=== PATIENT | male | born 1935 | race Caucasian/White ===

== ENCOUNTER 2018-12-22 08:26 | Inpatient (IN) | payer OTHER ==
[2018-12-22] VITALS (26 sets, daily range): BP systolic 150–218; BP diastolic 58–112; PULSE 59–95; RESP 10–26; Ht 168.9 cm; Wt 75.0 kg
[~2018-12-22] VITALS: Ht 168.9 cm; Wt 75.0 kg
[~2018-12-22 08:26] MED LIST: DEXAMETHASONE 4 MG/ML 5 ML INJ ONE; GLYCOPYRROLATE 0.4 MG INJ ONE; NEOSTIGMINE 10 MG INJ ONE; ONDANSETRON 4 MG INJ ONE; ROCURONIUM 50 MG INJ ONE
[2018-12-22] MEDS ORDERED: SITA100T11 PO (12:08)
[2018-12-22] MEDS ORDERED: ERGO2000 PO (12:10)
[2018-12-22] MEDS ORDERED: ASPI81TA52 PO (12:10)
[2018-12-22] MEDS ORDERED: CILO50TA PO (12:11)
[2018-12-22] MEDS ORDERED: METF100010 PO (12:11)
[2018-12-22] MEDS ORDERED: ATOR40TA68 PO (12:12)
[2018-12-22] MEDS ORDERED: TAMS0.4C2 PO (12:17)
[2018-12-22] MEDS ORDERED: LOSA25TA12 PO (12:18)
[2018-12-22] MEDS ORDERED: TRAM50TA PO (12:19)
[2018-12-22] MEDS ORDERED: BUPIVACAINE 0.5% (SDV) 30 ML INJ ONE (13:05)
[2018-12-22] MEDS ORDERED: GELATIN SIZE 100 SPONGE ONE (13:05)
[2018-12-22] MEDS ORDERED: THROMBIN (BOVINE) 5,000 UNIT VIAL TP ONE (13:05)
--- NOTE | 2018-12-22 13:05 | PREAC ---
Date/Time of Note Date/Time of Note DATE: 12/22/18 TIME: 13:03 Anesthesia Eval and Record Evaluation Time Pre-Procedure Interview DATE: 12/22/18 TIME: 13:03 Age 83 Sex male NPO: 8 hrs Preoperative diagnosis right common femoral artery occlusion Planned procedure right common femoral artery endarterectomy Past Medical History Past Medical History: Includes Cardio: HTN, Dyslipidemia, CAD, Other (aortic aneurysm) Endo: Diabetes Pulm: Smoking Hx Musculoskeletal: Other (chronic back pain) Heme: Anemia Surgery & Anesthesia Issues No known issue Meds Anticoagulation: No Beta Patsy within 24 hr: No Reason Beta Patsy not given: Pt. not on B-Patsy Reported Medications Tramadol Hcl* (Ultram*) 50 Mg Tablet, 50 MG PO TID PRN for PAIN, TAB 12/22/18 Losartan Potassium* (Losartan Potassium*) 25 Mg Tablet, 25 MG PO DAILY, TAB 12/22/18 Tamsulosin Hcl* (Tamsulosin Hcl*) 0.4 Mg Cap.er.24h, 0.4 MG PO HS, CAP 12/22/18 Atorvastatin* (Atorvastatin*) 40 Mg Tablet, 40 MG PO QHS, #30 TAB 12/22/18 Metformin Hcl* (Metformin Hcl*) 1,000 Mg Tablet, 1000 MG PO WITH BREAKFAST DINNE, #60 TAB 12/22/18 Cilostazol* (Cilostazol*) 50 Mg Tablet, 50 MG PO BID, TAB 12/22/18 Aspirin (Low Dose Aspirin) 81 Mg Tablet.dr, 81 MG PO DAILY, #30 TAB 12/22/18 Ergocalciferol (Vitamin D2) (VITAMIN D2) 2,000 Unit Tablet, 2000 UNIT PO DAILY, TAB 12/22/18 Sitagliptin* (Januvia*) 100 Mg Tablet, 100 MG PO DAILY, #30 TAB 12/22/18 Meds reviewed: Yes Allergies Coded Allergies: No Known Allergy (Unverified , 12/22/18) Allergies Reviewed: Yes Labs/Studies Labs Reviewed: Reviewed by anesthesiologist test: N/A Pre-procedure Exam Last vitals Vital Signs Date Temp Pulse Resp B/P (MAP) Pulse Ox O2 O2 Flow FiO2 Time Delivery Rate 12/22/18 97.8 69 16 166/77 96 Room Air 12:27 (106) Airway: Adequate mouth opening, Adequate thyromental dist Mallampati: Mallampati II Teeth: Normal Lung: Normal Heart: Normal ASA Physical Status ASA physical status: 3 Emergency: None Planned Anesthetic General/MAC: ETT, A Line Planned Pain Management Parenteral pain med Pre-operative Attestations Prior to commencing anesthesia and surgery, the patient was re-evaluated, there was verification of: *The patient's identity *The results of appropriate recent lab work and preoperative vital signs *The above evaluation not changing prior to induction *Anesthetic plan, risk benefits, alternative and complications discussed with patient/family; questions answered; patient/family understands, accepts and wishes to proceed. GIAN STOUT Dec 22, 2018 13:05
[2018-12-22] MEDS ORDERED: HEPARIN 1000 UNITS/ML 10 ML INJ ONE ×2 (13:06→15:54)
--- NOTE | 2018-12-22 14:47 | HPN ---
Date/Time of Note Date/Time of Note DATE: 12/22/18 TIME: 14:47 Interval H&P Admission Note Pt. seen H&P reviewed: No system changes PRIYA BOOKER MD Dec 22, 2018 14:47
[2018-12-22] MEDS ORDERED: PROTAMINE 250 MG INJ ONE (16:50)
[2018-12-22] MEDS ORDERED: ALBUTEROL 0.083% (NEB) 2.5 MG/3 ML AMP HHN PRN (17:00)
[2018-12-22] MEDS ORDERED: DIPHENHYDRAMINE 50 MG INJ IV PRN (17:00)
[2018-12-22] MEDS ORDERED: LABETALOL HCL 20MG INJ IV PRN (17:00)
[2018-12-22] MEDS ORDERED: HYDROmorphONE 0.5 MG/0.5 ML SYG IV PRN ×3 (17:00)
[2018-12-22] MEDS ORDERED: MIDAZOLAM 1 MG/ML 2 ML INJ IV PRN (17:00)
[2018-12-22] MEDS ORDERED: ONDANSETRON 4 MG INJ IV PRN (17:00)
[2018-12-22] MEDS ORDERED: MEPERIDINE 25 MG INJ IV PRN (17:00)
[2018-12-22] MEDS ORDERED: EPHEDrine SULFATE 50 MG/5 ML SYG IV PRN (17:00)
[2018-12-22] MEDS ORDERED: METOCLOPRAMIDE 10 MG INJ IV PRN (17:00)
[2018-12-22] MEDS ORDERED: LABETALOL HCL 20MG INJ ONE (17:01)
[2018-12-22] MEDS ORDERED: LIDOCAINE 2% (SDV) 5 ML INJ ONE (17:24)
[2018-12-22] MEDS ORDERED: ETOMIDATE 20 MG INJ ONE (17:24)
[2018-12-22] MEDS ORDERED: CEFAZOLIN 1 GM INJ ONE (17:24)
--- NOTE | 2018-12-22 17:33 | SIPON ---
Date/Time of Note Date/Time of Note DATE: 12/22/18 TIME: 17:31 Operative Report Preoperative Diagnosis Severe right leg claudication Postoperative Diagnosis Same Operation/Procedure Performed Right iliofemoral endarterectomy with patch angioplasty Surgeon see signature line clinical research assistant Dr. Rj Granger Anesthesia: general Estimated blood loss: 150 - 200 ml's Transfusion Required none Specimen R iliofemoral plaque Grafts/Implants none Complications none PRIYA BOOKER MD Dec 22, 2018 17:33
[2018-12-22] MEDS ORDERED: traMADol 50 MG TAB PO PRN (18:00)
[2018-12-22] MEDS ORDERED: HYDROCODONE/APAP (5/325) TAB PO PRN (18:00)
[2018-12-22] MEDS: hydrALAzine 20 MG INJ IV PRN ×3 (18:01→19:45)
[2018-12-22] MEDS ORDERED: hydrALAzine 20 MG INJ IV PRN (18:30)
[2018-12-22] MEDS: SOD CHLORIDE 0.9% 1,000 ML IV SCH (18:49)
[2018-12-22] MEDS ORDERED: GLUCOSE GEL 15 GRAM TUBE PO PRN ×2 (19:00)
[2018-12-22] MEDS ORDERED: GLUCOSE GEL 15 GRAM TUBE BUCCAL PRN (19:00)
[2018-12-22] MEDS ORDERED: GLUCAGON 1 MG INJ IM PRN (19:00)
[2018-12-22] MEDS ORDERED: DEXTROSE 50% 50 ML SYRINGE IV PRN ×2 (19:00)
--- NOTE | 2018-12-22 20:07 | OPR ---
DATE OF OPERATION: 12/22/2018 PREOPERATIVE DIAGNOSIS: Severe right lower extremity claudication. POSTOPERATIVE DIAGNOSIS: Severe right lower extremity claudication. PROCEDURE: Right iliofemoral endarterectomy with patch angioplasty. SURGEON: Anderson Roberts MD RESPIRATORY CLINICIAN: Rj Granger MD ANESTHESIA: General. ANESTHESIOLOGIST: Dr. Cruz. ESTIMATED BLOOD LOSS: 200 mL. COMPLICATIONS: None. SPECIMENS: Right iliofemoral plaque PREOPERATIVE INDICATIONS: This is an 83-year-old gentleman with multiple medical conditions includin g diabetes and severe peripheral vascular disease who had previous right iliac artery stents. He was found to have complete occlusion of the right common femoral artery extending proximally into the ri ght distal external iliac artery along with infiltrating into the profunda and proximal superficial f emoral arteries. The patient has had severe debilitating right lower extremity claudication. He now presents for endarterectomy. The indications, risks, and benefits of the procedure were discussed w ith the patient and his family at length, and they understood and agreed to proceed. DESCRIPTION OF PROCEDURE: The patient was properly identified, brought to the operating room and bruce alicja in a supine position. He was induced with general anesthesia without any difficulty. He receive d preoperative antibiotics. The patient's right groin and lower abdomen was prepped and draped in th e usual sterile fashion. He did have a palpable distal external iliac artery tibial pulse on exam; h owever, was fairly weak. A longitudinal incision was created overlying the area of the femoral arter y. This was done using a 15-blade scalpel. Subcutaneous tissues were deepened through using electro cautery. Dissection continued until the femoral artery was encountered. It was noted to be complete ly calcified and pulseless. There was marked scar tissue surrounding the entire artery. A Frederick's Arm was used to facilitate proximal exposure. The inguinal ligament was mobilized. Proximal dissect ion was continued until there was a relatively soft area at the distal external iliac artery; however , there was still significant amount of posterior plaque, but there were a pulse at this site. The a rterial branches were controlled using Silastic vessel loops. Distal dissection continued into the p roximal superficial femoral artery and the profunda femoral artery was dissected free as well by anderson secting the profunda vein. A good 2 to 3 cm of the profunda was dissected out given the fact that th ere was significant occlusive plaque at the origin. Once controlled, the patient was heparinized wit h 7000 units of intravenous heparin. An 11-blade scalpel was used to create an arteriotomy near the bifurcation. This was extended using Guy scissors. Initially, there was no lumen until distal con tinuation of the arteriotomy was performed. Once the lumen was identified there, the arteriotomy was continued proximally and once again without a defined lumen. This was continued until almost over t he area of the clamp, which was a Naeem Hydragrip for the proximal. The endarterectomy was then st arted with using a Hawthorne elevator medial and laterally. There was total occlusion with a hard calcif ic plaque medially; however, there was soft plaque within this that broke fairly easily. The plaque was actually transected with heavy scissors and this was allowed better control of the removal. Bowman ananda, the wall of the artery was markedly thin and there was one area that was thinned out, that was e ventually repaired with interrupted 6-0 Prolene sutures to prevent any further propagation of the tea r medially. The endarterectomy continued to the superficial femoral artery where an eversion endarte rectomy was performed with a relatively good improvement in the back flow. In addition, the profunda was cleaned out using an eversion endarterectomy as well. There is a large copious amount of plaque that was removed from this vessel as well. Similarly, the femoral endarterectomy continued into the distal external iliac artery using tonsil clamps to remove as much plaque as possible. Once the eber ority of the plaque was removed, residual debris was removed using fine pickups. The area was flushe d with copious amounts of saline. Once this was completed, there was good backbleeding from both the superficial femoral and the profunda femoral arteries. The arteriotomy was then closed using a bovi ne pericardial patch of 1 x 6 cm that was trimmed to the correct size. A 5-0 Prolene suture was used to saw the patch on to the arteriotomy. The anastomosis was flushed and the suture line was complet ed. Repair sutures were needed for the profunda femoral artery where the endarterectomy had taken pl larissa. There was an arterial wall defect that was closed using 6-0 Prolene sutures along with a pledge t. Additional repair sutures were placed a more proximal site as well. Thrombin-soaked Gelfoam annalee g with FloSeal were used to obtain hemostasis. The patient was also reversed with protamine. After hemostasis was completely assured, deep tissues were closed using 2-0 Vicryl sutures. The subcutaneo us tissues were closed using 3-0 Vicryl in multiple layers. The skin was closed using 4-0 Monocryl. Steri-Strips and dry dressings were then placed. The patient had excellent pulse throughout the fem oral artery into the proximal superficial femoral and profunda femoral arteries at the end of the pro cedure prior to closing. The patient was then awoken from general anesthesia without any difficulty and was transferred to recovery in good condition. Dictated By: ANDERSON DEL VALLE/MADINA Conf#: [id number] DID#: [id number] CC: ANDERSON Chun;*EndCC*
[2018-12-22] MEDS ORDERED: TAMSULOSIN (SR) 0.4 MG CAP PO SCH (21:00)
[2018-12-22] MEDS ORDERED: ATORVASTATIN 40 MG TAB PO SCH (21:00)
[2018-12-22] MEDS: CILOSTAZOL 100 MG TAB PO SCH (21:45)
[2018-12-22] MEDS: ACCU-CHEK XX SCH (22:00)
[2018-12-22] MEDS: HEPARIN 5,000 UNIT/1 ML VIAL SC SCH (22:16)
[2018-12-23] VITALS (17 sets, daily range): BP systolic 110–158; BP diastolic 53–113; PULSE 77–98; RESP 12–19
[2018-12-23] MEDS: SOD CHLORIDE 0.9% 1,000 ML IV SCH ×2 (01:57→13:51)
[2018-12-23] MEDS: morphine 2 MG INJ IV PRN ×2 (03:19→09:33)
[2018-12-23] MEDS: HEPARIN 5,000 UNIT/1 ML VIAL SC SCH ×2 (05:39→14:34)
[2018-12-23] MEDS: ACCU-CHEK XX SCH ×2 (06:58→11:00)
[2018-12-23] MEDS ORDERED: metFORMIN 500 MG TAB PO SCH (07:35)
[2018-12-23] MEDS ORDERED: HYDR-3601 PO (07:55)
--- NOTE | 2018-12-23 07:56 | PDOCDIS ---
Discharge Instructions CONDITION [id number] Patient Condition: [id number] Good HOME CARE INSTRUCTIONS: [id number] Diet Instructions: [id number] [id number] Activity Restrictions: Elylf3h Slowly Increase Activity FOLLOW UP/APPOINTMENTS Follow-up Plan pcp [address] Roberts 1 week KAYCE MESSER MD Dec 23, 2018 07:56
[2018-12-23] MEDS ORDERED: CHOLECALCIFEROL 2,000 UNIT CAP PO SCH (09:00)
[2018-12-23] MEDS ORDERED: ASPIRIN (EC) 81 MG TAB PO SCH (09:00)
[2018-12-23] MEDS ORDERED: LOSARTAN 25 MG TAB PO SCH (09:00)
[2018-12-23] MEDS ORDERED: LINAGLIPTIN 5 MG TABLET PO SCH (09:00)
[2018-12-23] MEDS: CILOSTAZOL 100 MG TAB PO SCH (09:14)
--- NOTE | 2018-12-23 10:57 | DS ---
DATE OF ADMISSION: 12/22/2018 DATE OF DISCHARGE: 12/23/2018 DISCHARGE DIAGNOSES: An 83-year-old male with: 1. Peripheral vascular disease. 2. Severe right leg claudication. 3. Status post iliofemoral endarterectomy with patch angioplasty. 4. Type 2 diabetes mellitus. 5. Hyperlipidemia. 6. Benign prostatic hyperplasia. HOSPITAL COURSE: An 83-year-old male with multiple other medical problems was electively admitted by Dr. Estrella. The patient underwent right iliofemoral endarterectomy with patch angioplasty. There we re no intraoperative or postoperative complications. The patient developed urinary retention during the immediate postop phase. A Beltrán catheter was inserted. He is now in a stable condition for discharge. The Beltrán catheter will be removed. The patient will follow up with PCP and Dr. Estrella. MEDICATIONS ON DISCHARGE: 1. Losartan 25 mg daily. 2. Metformin 1000 mg b.i.d. 3. Januvia 100 mg daily. 4. Flomax 0.4 mg daily. 5. Tramadol 50 mg 3 times a day as needed. 6. [place] 5/325 one every 6 hours as needed. 7. Aspirin 81 mg daily. 8. Lipitor 40 mg at bedtime. 9. Cilostazol 50 mg b.i.d. Dictated By: KAYCE CANALES/MADIAN Conf#: [id number] DID#: [id number] CC: CECILIA ESTRELLA MD; PRIYA Chun;*EndCC*
--- NOTE | 2018-12-23 14:09 | PAC ---
Date/Time of Note Date/Time of Note DATE: 12/23/18 TIME: 14:08 Post-Anesthesia Notes Post-Anesthesia Note Last documented vital signs Vital Signs Date Temp Pulse Resp B/P (MAP) Pulse Ox O2 O2 Flow FiO2 Time Delivery Rate 12/23/18 99.4 83 13 110/63 96 13:00 (79) 12/23/18 99.6 09:00 12/23/18 Room Air 06:00 12/23/18 2.0 04:00 Activity: WNL Respiratory function: WNL Cardiovascular function: WNL Mental status: Baseline Pain reasonably controlled: Yes Hydration appropriate: Yes Nausea/Vomiting absent: Yes GIAN STOUT Dec 23, 2018 14:09
== END 2018-12-23 15:35 | disposition home health service (06) | DRG 271 ==
LOC: REC 08:38 → EDSEX 08:38 → EDSTATUS 13:30 → ICU 17:41
PROVIDERS: ADMIT Surgery; ATTEND Surgery
PROC: 047K0ZZ Dilation of Right Femoral Artery, Open Approach (ICD-10-PCS; 2018-12-22)
PROC: 04UK0KZ Supplement Right Femoral Artery with Nonautologous Tissue Substitute, Open Approach (ICD-10-PCS; 2018-12-22)
PROC: 04CH0ZZ Extirpation of Matter from Right External Iliac Artery, Open Approach (ICD-10-PCS; principal; 2018-12-22 13:30)
DX: E11.51 Type 2 diabetes mellitus with diabetic peripheral angiopathy without gangrene (principal); I70.92 Chronic total occlusion of artery of the extremities; I70.211 Atherosclerosis of native arteries of extremities with intermittent claudication, right leg; E78.5 Hyperlipidemia, unspecified; I10 Essential (primary) hypertension; I25.10 Atherosclerotic heart disease of native coronary artery without angina pectoris; N40.0 Benign prostatic hyperplasia without lower urinary tract symptoms; Z87.891 Personal history of nicotine dependence; Z79.82 Long term (current) use of aspirin
CPT/HCPCS: 80048; 82962; 85025; 86850; 86900; 86901; 87081; 88304; 88311; 97162; C1725; J0360; J0690; J1100; J1170; J1644; J2270; J2405; J2710; J2720; J3010; J7030